=== PATIENT | female | born 1960 | race Caucasian/White ===

== ENCOUNTER 2018-12-01 15:17 | Outpatient (CLI) | payer BC ==
--- NOTE | 2018-12-01 15:54 | RAD ---
FXR Hip Lt 2-3 View History:Left hip pain Comparison: None Findings: There is some mild joint space narrowing. No significant spur formation. No signs of old or new fracture. 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
== END 2018-12-01 15:18 | disposition home or self-care (01) ==
LOC: BICRAD 15:17
PROVIDERS: ATTEND Chiropractor
DX: M70.62 Trochanteric bursitis, left hip (principal); M16.12 Unilateral primary osteoarthritis, left hip